=== PATIENT | female | born 1960 | race Caucasian/White ===

== ENCOUNTER 2020-09-02 14:29 | Emergency (ER) | payer OTHER ==
[~2020-09-02 14:29] MED LIST: BACTROBAN OINT22 GM EXT; CLEOCIN HCL300 MG PO
[2020-09-02 15:27] LABS: HEMOGLOBIN 15.9 gm/dl (12.3-15.3); RED BLOOD COUNT 4.41 M/UL (4.00-5.10); WHITE BLOOD COUNT 16.2 K/UL (4.5-11.0)
[2020-09-02 15:53] LABS: BUN/CREATININE RATIO 19 (0-10)
[2020-09-02] MEDS ORDERED: PERCOCET 5-3251 EACH PO (21:05)
== END 2020-09-02 21:20 | disposition home or self-care (01) ==
LOC: ER1 14:29
PROVIDERS: Family Medicine
DX: J44.0 Chronic obstructive pulmonary disease with (acute) lower respiratory infection (principal); J12.9 Viral pneumonia, unspecified; I73.9 Peripheral vascular disease, unspecified; Z20.822 Contact with and (suspected) exposure to COVID-19; F17.200 Nicotine dependence, unspecified, uncomplicated; Z90.49 Acquired absence of other specified parts of digestive tract; Z79.899 Other long term (current) drug therapy; Z88.6 Allergy status to analgesic agent; Z79.52 Long term (current) use of systemic steroids; Z88.8 Allergy status to other drugs, medicaments and biological substances
CPT/HCPCS: 0240U; 36415; 71045; 80053; 82550; 82553; 83735; 83874; 84439; 84443; 84484; 85025; 93005; 96374; 96375; 99285; J2270; J2405; Q9967

== ENCOUNTER → 2020-12-13 | Outpatient (CLI) | payer OTHER ==
[~2020-12-13] MED LIST changes: +PERCOCET 5-3251 EACH PO
== END ==
LOC: RAD 08:13
DX: E04.2 Nontoxic multinodular goiter (principal)
CPT/HCPCS: 74220; 76536

== ENCOUNTER → 2021-11-12 | Outpatient (CLI) | payer OTHER | LOC: US 11:24 | DX: E05.20 Thyrotoxicosis with toxic multinodular goiter without thyrotoxic crisis or storm (principal) | CPT/HCPCS: 76536 ==